=== PATIENT | female | born 1945 | race Caucasian/White ===

== ENCOUNTER 2017-02-22 23:22 | Observation (INO) | payer MEDICARE ==
[2017-02-22] MEDS: SODIUM CHLORIDE 0.9% FLUSH 10 ML SOL IV PRN (23:30)
[2017-02-22] MEDS ORDERED: NITROGLYCERIN 0.4 MG TAB SL PRN (23:31)
[2017-02-22] MEDS ORDERED: ASPIRIN 81 MG CHEWABLE CTB PO STA (23:31)
[2017-02-22] MEDS ORDERED: ASPIRIN 81 MG CHEWABLE CTB ONE (23:34)
[2017-02-22] MEDS ORDERED: NITROGLYCERIN 0.4 MG TAB SL ONE (23:34)
[2017-02-22 23:57] LABS: BASOPHILS % (AUTO) 1 % (0-3); EOSINOPHILS % (AUTO) 4 % (0-9); HEMATOCRIT 37 % (35-47); MEAN CORPUSCULAR HGB CONC 34.3 gm/dl (32.0-36.0); MEAN CORPUSCULAR VOLUME 88 fL (81-99); MONOCYTES % (AUTO) 7.9 % (0-12)
[2017-02-23 00:04] LABS: CALCIUM 8.8 mg/dl (8.5-10.1); GLOM FILT RATE 55 mL/min (>60); POTASSIUM 3.5 mMol/L (3.5-5.1); SODIUM 141 mMol/L (136-145)
[2017-02-23] MEDS ORDERED: LIDOCAINE HCL 2% (VISCOUS) 20 ML SOL MT ONE (00:33)
[2017-02-23] MEDS ORDERED: ONDANSETRON HCL 4 MG/2 ML SOL IV ONE (00:33)
[2017-02-23] MEDS ORDERED: ALUMINUM/MAGNESIUM 30 ML SUS PO ONE (00:33)
[2017-02-23] MEDS ORDERED: ALUMINUM/MAGNESIUM 30 ML SUS ONE (00:35)
[2017-02-23] MEDS ORDERED: ONDANSETRON HCL 4 MG/2 ML SOL ONE (00:35)
[2017-02-23] MEDS ORDERED: LIDOCAINE HCL 2% (VISCOUS) 20 ML SOL ONE (00:36)
[2017-02-23] MEDS ORDERED: NITROGLYCERIN 0.4 MG TAB SL PRN (00:45)
[2017-02-23] MEDS ORDERED: PANTOPRAZOLE SODIUM 40 MG ECT PO ONE ×2 (00:46→02:21)
[2017-02-23] MEDS ORDERED: HYDROMORPHONE 1 MG/ML SYRINGE IV PRN ×2 (00:48→02:36)
[2017-02-23] MEDS ORDERED: HYDROMORPHONE 1 MG/ML SYRINGE ONE ×2 (00:58→03:07)
[2017-02-23] MEDS: SODIUM CHLORIDE 0.9% FLUSH 10 ML SOL IV PRN ×4 (01:02→23:35)
[2017-02-23] MEDS: ENOXAPARIN 100 MG SOL SC SCH ×2 (03:01→13:07)
[2017-02-23] MEDS: TRAMADOL HYDROCHLORIDE 50 MG TAB PO PRN ×2 (03:51→16:26)
[2017-02-23 08:33] LABS: ALT 39 IU/L (14-63); CALCIUM 8.4 mg/dl (8.5-10.1); GLOM FILT RATE 62 mL/min (>60); POTASSIUM 4.1 mMol/L (3.5-5.1)
[2017-02-23 08:41] LABS: SODIUM 144 mMol/L (136-145)
[2017-02-23] MEDS ORDERED: TORSEMIDE 20 MG TAB PO SCH (09:00)
[2017-02-23] MEDS ORDERED: ACETAMINOPHEN 325 MG PO PRN (09:23)
[2017-02-23] MEDS: METOPROLOL TARTRATE 25 MG TAB PO SCH ×2 (09:41→20:48)
[2017-02-23] MEDS: ACETAMINOPHEN 500 MG 500 MG TAB PO PRN ×3 (09:42→23:35)
[2017-02-23] MEDS: TORSEMIDE 10 MG TABLET PO SCH (09:42)
[2017-02-23] MEDS: ASPIRIN 81 MG CHEWABLE CTB PO SCH (09:42)
[2017-02-23] MEDS: PANTOPRAZOLE SODIUM 40 MG ECT PO SCH (11:05)
[2017-02-23] MEDS ORDERED: LIDOCAINE HCL 2% (VISCOUS) 20 ML SOL PO ONE (17:17)
[2017-02-23] MEDS ORDERED: ALUMINUM/MAGNESIUM 30 ML SUS PO PRN (17:18)
[2017-02-23] MEDS ORDERED: KETOROLAC TROMETHAMINE 30 MG/ML SOL IV PRN (18:00)
[2017-02-23] MEDS ORDERED: SERTRALINE HYDROCHLORIDE 50 MG TAB PO SCH (21:00)
[2017-02-24 00:15] VITALS: RESP 20
[2017-02-24] MEDS: ENOXAPARIN 100 MG SOL SC SCH (03:16)
[2017-02-24 07:23] LABS: BASOPHILS % (AUTO) 2 % (0-3); EOSINOPHILS % (AUTO) 7 % (0-9); HEMATOCRIT 34 % (35-47); MEAN CORPUSCULAR HGB CONC 34.6 gm/dl (32.0-36.0); MEAN CORPUSCULAR VOLUME 89 fL (81-99); MONOCYTES % (AUTO) 8.7 % (0-12); NEUTROPHILS % (AUTO) 41.7 % (37-80)
[2017-02-24 07:28] LABS: CALCIUM 8.4 mg/dl (8.5-10.1); POTASSIUM 4.2 mMol/L (3.5-5.1)
[2017-02-24] MEDS ORDERED: SODIUM CHLORIDE 0.9% FLUSH 10 ML SOL IV SCH (08:00)
[2017-02-24 08:14] VITALS: BP 134/76; PULSE 79; TEMP 99.9; O2SAT 92
[2017-02-24] MEDS: ASPIRIN 81 MG CHEWABLE CTB PO SCH (08:21)
[2017-02-24] MEDS: PANTOPRAZOLE SODIUM 40 MG ECT PO SCH (08:21)
[2017-02-24] MEDS: METOPROLOL TARTRATE 25 MG TAB PO SCH (08:21)
[2017-02-24] MEDS: TORSEMIDE 10 MG TABLET PO SCH (08:22)
[2017-02-24] MEDS ORDERED: PREDNISONE 20 MG TAB PO ONE (09:00)
[2017-02-24] MEDS ORDERED: PNEUMOCOCCAL VACCINE 0.5 ML SOL IM ONE (09:24)
== END 2017-02-24 10:30 | disposition home or self-care (01) | DRG 195 ==
LOC: ED 23:22 → ACUTE CARE 02-23 00:55
PROVIDERS: ADMIT Family Medicine; ATTEND Family Medicine
DX: R09.1 Pleurisy (principal); I10 Essential (primary) hypertension; R73.02 Impaired glucose tolerance (oral); Z95.5 Presence of coronary angioplasty implant and graft; I25.2 Old myocardial infarction; R53.1 Weakness; Z86.79 Personal history of other diseases of the circulatory system; R09.02 Hypoxemia
CPT/HCPCS: 36415; 71010; 80048; 80053; 82150; 82550; 84484; 85025; 85378; 85610; 85730; 90732; 93005; 93012; 99285; J1650; J1885; J2405; J1170

== ENCOUNTER 2018-07-14 18:13 | Emergency (ER) | payer MEDICARE, MEDICAID | END 2018-07-14 21:52 | disposition home or self-care (01) | LOC: ED 18:13 ==

== ENCOUNTER 2018-07-21 12:11 | Inpatient (IN) | payer MEDICARE ==
[2018-07-21] MEDS ORDERED: SODIUM CHLORIDE 0.9% FLUSH 10 ML SOL IV PRN (12:14)
[2018-07-21] MEDS ORDERED: SODIUM CHLORIDE 0.9% 1000ML 1,000 ML IV ONE (12:30)
[2018-07-21 12:41] LABS: HEMATOCRIT 40 % (35-47); HEMOGLOBIN 12.9 gm/dl (12.0-15.5); MEAN CORPUSCULAR HEMOGLOBIN 28.2 pg (27.0-32.0); MEAN CORPUSCULAR HGB CONC 32.3 gm/dl (32.0-36.0); MEAN CORPUSCULAR VOLUME 87 fL (81-99)
[2018-07-21 12:49] LABS: LACTIC ACID 1.7 mMol/L (0.0-2.0)
[2018-07-21 12:50] LABS: ALBUMIN 2.8 gm/dl (3.4-5.0); BILIRUBIN,TOTAL 1.2 mg/dl (0.2-1.0); CALCIUM 8.4 mg/dl (8.5-10.1); CARBON DIOXIDE 24.5 mEq/L (21-32); CREATININE 1.39 mg/dl (0.60-1.00); POTASSIUM 3.5 mMol/L (3.5-5.1); TOTAL PROTEIN 7.3 gm/dl (6.4-8.2)
[2018-07-21 13:03] LABS: BAND NEUTROPHILS % (MANUAL) 13 %; EOSINOPHILS % (MANUAL) 0 % (0-9); LYMPHOCYTES % (MANUAL) 5 % (10-50); MONOCYTES % (MANUAL) 2 % (0-12); NEUTROPHILS % (MANUAL) 80 % (37-80)
[2018-07-21 13:04] LABS: ANISOCYTOSIS SLIGHT AMT; BASOPHILS % (MANUAL) 0 % (0-3)
[2018-07-21] MEDS: ONDANSETRON HCL 4 MG/2 ML SOL IV PRN ×2 (13:20→20:28)
[2018-07-21] MEDS: SODIUM CHLORIDE 0.9% 1000ML 1,000 ML IV SCH ×2 (13:30→21:20)
[2018-07-21] MEDS ORDERED: HYDROMORPHONE 1 MG/ML SYRINGE IV PRN (14:20)
[2018-07-21] MEDS: CIPROFLOXACIN HCL 500 MG TAB PO SCH ×2 (16:33→21:22)
[2018-07-21] MEDS: METRONIDAZOLE 250 MG TAB PO SCH (18:10)
[2018-07-21] MEDS: TRAMADOL HYDROCHLORIDE 50 MG TAB PO PRN (18:14)
[2018-07-21] MEDS ORDERED: MORPHINE SULFATE 10 MG/ML SOL IV PRN (18:52)
[2018-07-21 19:23] LABS: CARBON DIOXIDE 24.6 mEq/L (21-32); CREATININE 1.18 mg/dl (0.60-1.00); POTASSIUM 3.3 mMol/L (3.5-5.1)
[2018-07-22] MEDS: METRONIDAZOLE 250 MG TAB PO SCH ×2 (01:24→06:16)
[2018-07-22] MEDS: SODIUM CHLORIDE 0.9% 1000ML 1,000 ML IV SCH ×4 (03:46→22:01)
[2018-07-22 07:07] LABS: HEMATOCRIT 33 % (35-47); HEMOGLOBIN 10.4 gm/dl (12.0-15.5); MEAN CORPUSCULAR HEMOGLOBIN 28.1 pg (27.0-32.0); MEAN CORPUSCULAR HGB CONC 31.6 gm/dl (32.0-36.0); MEAN CORPUSCULAR VOLUME 89 fL (81-99)
[2018-07-22 07:15] LABS: CALCIUM 7.8 mg/dl (8.5-10.1); CARBON DIOXIDE 23.7 mEq/L (21-32); CREATININE 0.89 mg/dl (0.60-1.00); POTASSIUM 3.1 mMol/L (3.5-5.1)
[2018-07-22 07:37] LABS: BAND NEUTROPHILS % (MANUAL) 22 %; BASOPHILS % (MANUAL) 0 % (0-3); EOSINOPHILS % (MANUAL) 1 % (0-9); LYMPHOCYTES % (MANUAL) 8 % (10-50); MONOCYTES % (MANUAL) 1 % (0-12); NEUTROPHILS % (MANUAL) 68 % (37-80); NORMAL RBCS PRESENT
[2018-07-22] MEDS ORDERED: POTASSIUM CHLORIDE 2 MEQ/ML SOL IV ONE (08:07)
[2018-07-22] MEDS ORDERED: LIDOCAINE HCL 1% MPF 30 SOL ONE (08:41)
[2018-07-22] MEDS: VANCOMYCIN HCL 125 MG CAP PO SCH ×4 (09:15→20:21)
[2018-07-22] MEDS: ENOXAPARIN 40 MG SOL SC SCH (09:15)
[2018-07-22] MEDS: TRAMADOL HYDROCHLORIDE 50 MG TAB PO PRN (09:23)
[2018-07-22] MEDS ORDERED: ONDANSETRON HCL 4 MG TAB ONE (16:51)
[2018-07-23] MEDS: SODIUM CHLORIDE 0.9% 1000ML 1,000 ML IV SCH ×3 (04:42→14:40)
[2018-07-23] MEDS: ONDANSETRON HCL 4 MG/2 ML SOL IV PRN (04:42)
[2018-07-23 07:13] LABS: CALCIUM 7.7 mg/dl (8.5-10.1); CARBON DIOXIDE 24.2 mEq/L (21-32); CREATININE 0.72 mg/dl (0.60-1.00); POTASSIUM 3.7 mMol/L (3.5-5.1)
[2018-07-23 07:14] LABS: HEMATOCRIT 31 % (35-47); HEMOGLOBIN 9.8 gm/dl (12.0-15.5); MEAN CORPUSCULAR HEMOGLOBIN 28.4 pg (27.0-32.0); MEAN CORPUSCULAR VOLUME 89 fL (81-99)
[2018-07-23 08:01] LABS: ANISOCYTOSIS SLIGHT AMT; BAND NEUTROPHILS % (MANUAL) 4 %; BASOPHILS % (MANUAL) 1 % (0-3); EOSINOPHILS % (MANUAL) 2 % (0-9); LYMPHOCYTES % (MANUAL) 15 % (10-50); MONOCYTES % (MANUAL) 5 % (0-12); NEUTROPHILS % (MANUAL) 73 % (37-80)
[2018-07-23] MEDS: ONDANSETRON 4 MG ODT BU PRN ×2 (08:27→17:46)
[2018-07-23] MEDS: ENOXAPARIN 40 MG SOL SC SCH (09:13)
[2018-07-23] MEDS: VANCOMYCIN HCL 125 MG CAP PO SCH ×4 (09:14→20:21)
[2018-07-23] MEDS: TRAMADOL HYDROCHLORIDE 50 MG TAB PO PRN ×2 (10:04→16:55)
[2018-07-24] MEDS: SODIUM CHLORIDE 0.9% 1000ML 1,000 ML IV SCH ×2 (00:41→10:36)
[2018-07-24 07:56] LABS: ALBUMIN 2.1 gm/dl (3.4-5.0); BILIRUBIN,TOTAL 0.3 mg/dl (0.2-1.0); CALCIUM 7.9 mg/dl (8.5-10.1); CARBON DIOXIDE 25.1 mEq/L (21-32); CREATININE 0.7 mg/dl (0.60-1.00); CRP INFLAMMATORY 4.95 mg/dl (0.00-0.33); POTASSIUM 3.2 mMol/L (3.5-5.1); TOTAL PROTEIN 5.3 gm/dl (6.4-8.2)
[2018-07-24 08:05] LABS: BASOPHILS % (AUTO) 1 % (0-3); EOSINOPHILS % (AUTO) 5 % (0-9); HEMATOCRIT 31 % (35-47); HEMOGLOBIN 9.8 gm/dl (12.0-15.5); LYMPHOCYTES % (AUTO) 18.5 % (10-50); MEAN CORPUSCULAR HEMOGLOBIN 28.2 pg (27.0-32.0); MEAN CORPUSCULAR HGB CONC 31.8 gm/dl (32.0-36.0); MEAN CORPUSCULAR VOLUME 89 fL (81-99); MONOCYTES % (AUTO) 6.4 % (0-12); NEUTROPHILS % (AUTO) 69.3 % (37-80)
[2018-07-24] MEDS ORDERED: ACETAMINOPHEN 325 MG PO PRN (08:33)
[2018-07-24] MEDS ORDERED: SODIUM CHLORIDE 0.45% 1000 ML 1,000 ML with POTASSIUM CHLORIDE 2 MEQ/ML 20 MEQ IV SCH (08:45)
[2018-07-24] MEDS: ENOXAPARIN 40 MG SOL SC SCH (08:51)
[2018-07-24] MEDS: VANCOMYCIN HCL 125 MG CAP PO SCH ×4 (08:51→20:20)
[2018-07-24] MEDS: TRAMADOL HYDROCHLORIDE 50 MG TAB PO PRN ×2 (08:52→20:21)
[2018-07-24] MEDS ORDERED: DEXTROSE/SALINE 0.45/KCL 20MEQ 1,000 ML/1,000 ML SOL IV ONE (10:30)
[2018-07-24] MEDS: POTASSIUM CHLORIDE 10 MEQ TER PO SCH ×2 (10:51→20:21)
[2018-07-24 16:07] VITALS: RESP 18
[2018-07-25] MEDS: TRAMADOL HYDROCHLORIDE 50 MG TAB PO PRN (00:28)
[2018-07-25 07:43] LABS: CALCIUM 8.6 mg/dl (8.5-10.1); CARBON DIOXIDE 28.2 mEq/L (21-32); CREATININE 0.73 mg/dl (0.60-1.00); POTASSIUM 3.4 mMol/L (3.5-5.1)
[2018-07-25 07:52] LABS: BASOPHILS % (AUTO) 1 % (0-3); EOSINOPHILS % (AUTO) 5 % (0-9); HEMATOCRIT 36 % (35-47); HEMOGLOBIN 11.4 gm/dl (12.0-15.5); LYMPHOCYTES % (AUTO) 21.5 % (10-50); MEAN CORPUSCULAR VOLUME 88 fL (81-99); NEUTROPHILS % (AUTO) 64.9 % (37-80)
[2018-07-25 08:40] VITALS: BP 137/80; PULSE 94; TEMP 98; O2SAT 94
[2018-07-25] MEDS: ENOXAPARIN 40 MG SOL SC SCH (08:52)
[2018-07-25] MEDS: VANCOMYCIN HCL 125 MG CAP PO SCH (08:52)
[2018-07-25] MEDS: POTASSIUM CHLORIDE 10 MEQ TER PO SCH (08:52)
[2018-07-25] MEDS ORDERED: TORSEMIDE 10 MG TABLET PO SCH (09:00)
[2018-07-25] MEDS ORDERED: POTASSIUM CHLORIDE 10 MEQ TER PO SCH (09:00)
[2018-07-25] MEDS ORDERED: POTASSIUM CHLORIDE 10 MEQ CAPSULE PO ONE (09:31)
[2018-07-25] MEDS ORDERED: PNEUMOC 13-VAL CONJ-DIP CRM/PF 0.5 ML SYRINGE IM ONE (11:18)
== END 2018-07-25 13:05 | disposition home or self-care (01) | DRG 641 ==
LOC: ACUTE CARE 12:11 → OBSVTOIN 07-22 08:30
PROVIDERS: ADMIT Family Medicine; ATTEND Family Medicine
DX: E86.0 Dehydration (principal); A04.72 Enterocolitis due to Clostridium difficile, not specified as recurrent; K52.9 Noninfective gastroenteritis and colitis, unspecified; R11.11 Vomiting without nausea; K57.90 Diverticulosis of intestine, part unspecified, without perforation or abscess without bleeding; I10 Essential (primary) hypertension
CPT/HCPCS: 36415; 74019; 74177; 80048; 80053; 82150; 84132; 84484; 85007; 85025; 85027; 90670; 93005; J1650; J2270; J2405; J3480; Q9967; A9270-GY; G0008; J2001